=== PATIENT | male | born 1940 | race Caucasian/White ===

== ENCOUNTER 2021-12-27 23:34 | Emergency (ER) | payer OTHER ==
[~2021-12-27 23:34] MED LIST: AMLODIPINE BESYL5 MG PO; ASPIRIN EC81 MG PO; ATORVASTATIN CA80 MG PO; LISINOPRIL 20MG20 MG PO; LOPRESSOR50 MG PO; PANTOPRAZOLE SO40 MG PO; PEPCID AC20 MG PO
[2021-12-27 23:56] LABS: BASOPHIL 0.7 % (0-2); EOSINOPHIL 2.6 % (0-7); HCT 42.1 % (42.0-52.0); HGB 13.7 g/dl (13.2-18.0); LYMPHOCYTE 20.5 % (15-48); MCH 29.1 pg (25.0-31.0); MCHC 32.5 g/dL (32.0-36.0); MCV 89.6 fL (78.0-100.0); MONOCYTE 8.7 % (0-12); MPV 11.6 fL (6.0-9.5); NEUTROPHIL 67.2 % (41-80); NRBC 0; PLT 197 K/uL (150-400); RDW 15.3 % (11.5-14.0); WBC 7.4 K/uL (4.0-10.5)
[2021-12-28 00:20] LABS: ALBUMIN 3.8 g/dL (3.4-5.0); BILIRUBIN - TOTAL 0.6 mg/dL (0.2-1.0); BUN/CREAT RATIO (CALC) 31.9 RATIO; CREATININE 0.91 mg/dL (0.67-1.17); GLOBULIN (CALCULATION) 3.7 g/dL; INR 0.96 (0.9-1.2); POTASSIUM 4.3 mmol/L (3.5-5.1); PROTHROMBIN TIME 12.5 SECONDS (11.9-13.9); PTT 31.2 SECONDS (24.9-34.6); TOTAL PROTEIN 7.5 g/dL (6.4-8.2)
== END 2021-12-28 01:55 | disposition home or self-care (01) ==
LOC: FER 23:34
PROVIDERS: Emergency Medicine
DX: I48.0 Paroxysmal atrial fibrillation (principal); I10 Essential (primary) hypertension; E11.9 Type 2 diabetes mellitus without complications; Z79.84 Long term (current) use of oral hypoglycemic drugs; Z79.899 Other long term (current) drug therapy
CPT/HCPCS: 36415; 71045; 80053; 83880; 84484; 85025; 85610; 85730; 93005